=== PATIENT | male | born 1980 | race Caucasian/White ===

== ENCOUNTER 2018-11-24 20:34 | Emergency (ER) | payer BC ==
[2018-11-24 20:47] VITALS: BP 149/93
--- NOTE | 2018-11-24 21:11 | UC ---
General HPI - HPI Summary HPI Summary: 2 days ago while at work, pt noted some irritation under his socks while at work. after it rained that rash became worse in the same pattern. at the onset the areas of rash were small but then got larger-more confluent once his socks got wet. the rash has a mild burn/mild itch to it. 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 he has no other rash, fever, chills or acute illness. he tx with an antifungal cream. the rash under the sock areas is improving but he has some new areas. - History of Current Complaint Chief Complaint: [place] Stated Complaint: SKIN CONCERN Time Seen by Provider: 11/24/18 21:00 Hx Obtained From: Patient, Family/Field Services Manager Onset/Duration: Gradual Onset Pain Intensity: 0 - Allergy/Home Medications Allergies/Adverse Reactions: Allergies Allergy/AdvReac Type Severity Reaction Status Date / Time No Known Allergies Allergy Verified 11/24/18 20:48 Home Medications: Home Medications Lisinopril/Hydrochlorothiazide [Zestoretic 10-12.5 mg Tablet] 1 each PO DAILY [History Confirmed 11/24/18] PMH/Surg Hx/FS Hx/Imm Hx Cardiovascular History: Hypertension - Surgical History Surgical History: None - Family History Known Family History: Positive: Non-Contributory - Social History Occupation: Employed Full-time Lives: With Family Alcohol Use: Rare Substance Use Type: None Smoking Status (MU): Never Smoked Tobacco Review of Systems All Other Systems Reviewed And Are Negative: Yes Constitutional: Negative: Fever, Chills Skin: Positive: Rash Musculoskeletal: Negative: Arthralgia, Edema Neurological: Negative: Paresthesia Physical Exam Triage Information Reviewed: Yes Appearance: Well-Appearing Vital Signs: Initial Vital Signs Temp 100.1 F 11/24/18 20:45 Pulse 101 11/24/18 20:45 Resp 20 11/24/18 20:45 BP 149/93 11/24/18 20:45 Pulse Ox 99 11/24/18 20:45 Vital Signs Reviewed: Yes Eyes: Positive: Conjunctiva Clear Neck: Positive: Supple Respiratory: Positive: No respiratory distress Musculoskeletal: Positive: ROM Intact, No Edema. Negative: ROM Limited @ Neurological: Positive: Alert Psychological: Positive: Normal Response To Family, Age Appropriate Behavior Skin Exam: Normal Skin: Positive: Rashes - pt has a rash with large-pink patches to BLE's in the pattern of his socks with some areas showing clearing. there are a few smaller spots on his lower legs just above the sock line and back of thigh on L. the rash blanches and is not petechial, blistering or peeling. there are no burrows. the rash is not warm or tender. the rest of his body is free of rash. Re-Evaluation - Re-Evaluation First Eval Re-Evaluation Time: 21:15 Change: Improved - HR=88, TEMP 98.8 Course/Dx - Differential Dx - Multi-Symptom Differential Diagnoses: Other - no bullseye of lyme. not c/w fungal infection or viral rash. repeat vs showed no tachycardia or fever and it is not red or warm like cellulitis. no concern for infestation. it blanches and is not petechial thus no concern for vasculitis. i think this is contact dermatitis. - Diagnoses Provider Diagnosis: Rash Discharge - Sign-Out/Discharge Documenting (check all that apply): Patient Departure All imaging exams completed and their final reports reviewed: No Studies - Discharge Plan Condition: Stable Disposition: HOME Prescriptions: predniSONE [Prednisone 20 MG TAB] 40 mg PO DAILY 5 Days #10 tablet Patient Education Materials: Contact Dermatitis (ED) Referrals: Peg Miles NP [Primary Care Provider] - 5 Days Additional Instructions: FOLLOW UP SOONER FOR FEVER OR ANY WORSENING - Billing Disposition and Condition Condition: STABLE Disposition: Home
[2018-11-24] MEDS ORDERED: predniSONE TAB* 20 MG PO ONE (21:12)
== END 2018-11-24 21:24 | disposition home or self-care (01) ==
LOC: UCCORT 20:34
DX: R21 Rash and other nonspecific skin eruption (principal); I10 Essential (primary) hypertension
CPT/HCPCS: 99202; G0463; J7512